=== PATIENT | female | born 1980 | race Hispanic/Latino ===

== ENCOUNTER 2020-07-01 10:19 | Outpatient (CLI) | payer OTHER ==
--- NOTE | 2020-07-01 13:42 | Fluoroscopy Report ---
Double contrast Upper GI Indication: Epigastric pain and dysphagia. Technique: Double contrast upper GI performed per protocol. The total number of fluoroscopic images o btained was 31. The total fluoroscopy time measured 1.2 minutes minutes. FINDINGS: The esophageal motility was normal. No esophageal mucosal abnormality was identified. There is no evidence of esophageal stricture or hiatal hernia. There was mild spontaneous gastroesophageal reflux. The stomach and duodenum appear normal. IMPRESSION: 1. Mild spontaneous gastroesophageal reflux. 2. No abnormality of the stomach or duodenum. Signer Name: Martínez Izquierdo MD Signed: 07/01/2020 1:37 PM Workstation Name: [id number]
== END 2020-07-01 10:20 | disposition home or self-care (01) ==
LOC: FLUORO 10:19
PROVIDERS: ATTEND Internal Medicine
DX: K21.9 Gastro-esophageal reflux disease without esophagitis (principal); R13.10 Dysphagia, unspecified; R10.13 Epigastric pain
CPT/HCPCS: 74221